=== PATIENT | female | born 1970 | race Caucasian/White ===

== ENCOUNTER → 2019-07-06 | Outpatient (CLI) | payer BC ==
--- NOTE | 2019-07-14 10:12 | MM ---
Reason for exam: screening (asymptomatic). Last mammogram was performed 6 years and 8 months ago. Physical Findings: A clinical breast exam by your physician is recommended on an annual basis and results should be correlated with mammographic findings. MG Screening Mammo w CAD Bilateral CC and MLO view(s) were taken. Prior study comparison: November 15, 2012, mammogram, performed at [place]. September 11, 2011, mammogram, performed at [place]. The breast tissue is extremely dense which could obscure a lesion on mammography. There is no discrete abnormality. ASSESSMENT: Negative, BI-RAD 1 RECOMMENDATION: Routine screening mammogram of both breasts in 1 year. Some consider ultrasound surveillance in patient with extreme dense breasts.
== END | disposition home or self-care (01) ==
LOC: RADMAMWWP 16:34
PROVIDERS: ATTEND Obstetrics & Gynecology
DX: Z12.31 Encounter for screening mammogram for malignant neoplasm of breast (principal)
CPT/HCPCS: 77067

== ENCOUNTER → 2020-11-06 | Outpatient (CLI) | payer BC ==
--- NOTE | 2020-11-12 12:09 | MM ---
Reason for exam: screening (asymptomatic). Last mammogram was performed 1 year and 4 months ago. Physical Findings: A clinical breast exam by your physician is recommended on an annual basis and results should be correlated with mammographic findings. MG Screening Mammo w CAD Bilateral CC and MLO view(s) were taken. Prior study comparison: July 06, 2019, bilateral MG screening mammo w CAD. November 15, 2012, mammogram, performed at [place]. The breast tissue is extremely dense which could obscure a lesion on mammography. Two densities right central and medial, posterior depth on CC. Density medial left breast posterior depth on CC. Density superior left breast posterior depth on MLO. ASSESSMENT: Incomplete: need additional imaging evaluation, BI-RAD 0 RECOMMENDATION: Special view mammogram of both breasts. If lesion persists on supplemental views, image directed ultrasound is recommended. [facility] will attempt to contact patient to return for supplemental views and ultrasound if indicated.
== END | disposition home or self-care (01) ==
LOC: RADMAMWWP 09:43
PROVIDERS: ATTEND Obstetrics & Gynecology
DX: Z12.31 Encounter for screening mammogram for malignant neoplasm of breast (principal)
CPT/HCPCS: 77067

== ENCOUNTER → 2020-12-05 | Outpatient (CLI) | payer BC ==
--- NOTE | 2020-12-11 10:44 | MM ---
Reason for exam: additional evaluation requested from abnormal screening. Last mammogram was performed 1 month ago. History: Took hormonal contraceptives for 12 years beginning at age 17. Physical Findings: Nurse did not find any significant physical abnormalities on exam. MG Work Up Mamm w CAD BILAT Bilateral spot compression CC and LM view(s) were taken. Spot compression MLO view(s) were taken of the left breast. Prior study comparison: November 06, 2020, bilateral MG screening mammo w CAD. July 06, 2019, bilateral MG screening mammo w CAD. The breast tissue is extremely dense which could obscure a lesion on mammography. Finding: There is a persistent intermediate concern, suspicious 5 mm equal density (isodense), indistinct irregular mass located 9 cm from the nipple in the posterior position of the right breast on CC. There is no discrete abnormality including area of concern left breast and medial right breast. New finding since November 06, 2020 and July 06, 2019. These results were verbally communicated with the patient and result sheet given to the patient on 12/05/20. ASSESSMENT: Incomplete: need additional imaging evaluation, BI-RAD 0 RECOMMENDATION: Ultrasound of the right breast.
--- NOTE | 2020-12-11 10:45 | USB ---
Reason for exam: additional evaluation requested from abnormal screening. History: Took hormonal contraceptives for 12 years beginning at age 17. US Breast Workup Limited RT Right limited breast ultrasound including focal area of concern, retroareolar and axilla demonstrates no cystic or solid lesion seen. These results were verbally communicated with the patient and result sheet given to the patient on 12/05/20. ASSESSMENT: Negative, BI-RAD 1 RECOMMENDATION: Follow-up diagnostic mammogram of the right breast in 6 months.
== END | disposition home or self-care (01) ==
LOC: RADMAMWWP 09:07
PROVIDERS: ATTEND Obstetrics & Gynecology
DX: N63.10 Unspecified lump in the right breast, unspecified quadrant (principal); Z79.3 Long term (current) use of hormonal contraceptives
CPT/HCPCS: 77066

== ENCOUNTER → 2021-06-20 | Outpatient (CLI) | payer SELFPAY ==
--- NOTE | 2021-06-20 12:09 | MM ---
Reason for exam: follow-up at short interval from prior study. Last mammogram was performed 6 months ago. History: Took hormonal contraceptives for 12 years beginning at age 17. Physical Findings: Nurse did not find any significant physical abnormalities on exam. MG Diagnostic Mammo RT w CAD Spot compression CC, spot compression MLO, and LM view(s) were taken of the right breast. Prior study comparison: December 05, 2020, bilateral MG work up mamm w CAD BILAT. November 06, 2020, bilateral MG screening mammo w CAD. The breast tissue is heterogeneously dense. This may lower the sensitivity of mammography. The small asymmetric densities posterior right CC are unchanged for 6 months. Superior, central and medial asymmetric densities are more defined but do not persist on additional view. These results were verbally communicated with the patient and result sheet given to the patient on 06/20/21. ASSESSMENT: Probably benign, BI-RAD 3 RECOMMENDATION: Follow-up diagnostic mammogram of both breasts in 5 months. Back on schedule for November 2021.
== END ==
LOC: RADMAMWWP 10:09
PROVIDERS: ATTEND Obstetrics & Gynecology
DX: N64.89 Other specified disorders of breast (principal)
CPT/HCPCS: 77065

== ENCOUNTER → 2021-12-02 | Outpatient (CLI) | payer SELFPAY ==
--- NOTE | 2021-12-02 15:22 | MM ---
Reason for Exam: Follow-up at short interval from prior study. Last mammogram was performed 1 year(s) and 1 month(s) ago. Patient History: Menarche at age 15. First Full-Term at age 21. Patient has history of breast feeding. Hormonal Contraceptives for 12 years from age 17 until age 29. Risk Values: Rianna 5 year model risk: 0.8%. NCI Lifetime model risk: 7.2%. Prior Study Comparison: 09/11/2011 Screening Mammogram, [place]. 11/15/2012 Screening Mammogram, [place]. 07/06/2019 Bilateral Screening Mammogram, [facility]. 11/06/2020 Bilateral Screening Mammogram, [facility]. 12/05/2020 Bilateral Diagnostic Mammogram, [facility]. 12/05/2020 Right Diagnostic Ultrasound, [facility]. 06/20/2021 Right Diagnostic Mammogram, [facility]. Tissue Density: The breast tissue is extremely dense which could obscure a lesion on mammography. Findings: Analyzed By CAD. Areas of asymmetric density on the right remain unchanged. There is nodularity lateral left cc view and inferior left MLO view measuring up to 1 cm that is either new or larger and better demonstrated on 3-D images. Underlying cysts are suspected. Further ultrasound evaluation recommended. Otherwise, no significant change. Overall Assessment: Incomplete: need additional imaging evaluation, BI-RAD 0 Management: Diagnostic Breast Ultrasound of the left breast. For underlying nodularity measuring up to 1 cm that is either new or increased in size. Electronically signed and approved by: Sally Staton M.D. Radiologist
--- NOTE | 2021-12-02 15:36 | USB ---
Reason for Exam: Additional evaluation requested from abnormal screening. Patient History: Menarche at age 15. First Full-Term at age 21. Patient has history of breast feeding. Hormonal Contraceptives for 12 years from age 17 until age 29. Risk Values: Rianna 5 year model risk: 0.8%. NCI Lifetime model risk: 7.2%. Prior Study Comparison: 11/06/2020 Bilateral Screening Mammogram, [facility]. 12/05/2020 Bilateral Diagnostic Mammogram, [facility]. 06/20/2021 Right Diagnostic Mammogram, [facility]. Findings: The whole breast of the left breast, the axilla of the left breast and the retroareolar of the left breast were scanned. Whole left breast ultrasound was performed including scanning of the subareolar region and axilla. Dense tissues are present throughout. Scattered benign cysts are demonstrated, largest measuring 8 mm and located at the 7:00 and 10:00 positions. There is also a biloculated cyst cluster measuring 1.0 x 0.9 cm the 3:00 position, 8 cm from the nipple. No other solid or cystic lesion seen. Overall Assessment: Probably benign, BI-RAD 3 Management: Diagnostic Mammogram of the left breast in 6 months. 1. To reassess the underlying circumscribed nodularity. 2. Patient should continue monthly self breast exams. A clinical breast exam by your physician is recommended on an annual basis. 3. This exam should not preclude additional follow-up of suspicious palpable abnormalities. Electronically signed and approved by: Sally Staton M.D. Radiologist
== END | disposition home or self-care (01) ==
LOC: RADMAMWWP 14:42
PROVIDERS: ATTEND Obstetrics & Gynecology
DX: R92.8 Other abnormal and inconclusive findings on diagnostic imaging of breast (principal)
CPT/HCPCS: 77062; 77066

== ENCOUNTER → 2023-01-16 | Outpatient (CLI) | payer SELFPAY ==
--- NOTE | 2023-01-16 11:07 | MM ---
Reason for Exam: Follow-up at short interval from prior study. Last mammogram was performed 1 year(s) and 1 month(s) ago. Patient History: Menarche at age 15. First Full-Term at age 21. Patient has history of breast feeding. Hormonal Contraceptives for 12 years from age 17 until age 29. Risk Values: Rianna 5 year model risk: 0.9%. NCI Lifetime model risk: 7.1%. Prior Study Comparison: 12/05/2020 Bilateral Diagnostic Mammogram, [facility]. 06/20/2021 Right Diagnostic Mammogram, [facility]. 12/02/2021 Bilateral MG 3D diag mammo w/cad ERASMO, [facility]. Tissue Density: Left: The breast tissue is extremely dense which could obscure a lesion on mammography. Findings: Analyzed By CAD. No evidence for suspicious mass or distortion. No suspicious microcalcifications. Overall Assessment: Benign, BI-RAD 2 Management: Screening Mammogram of both breasts in 1 year. . Results were given to the patient verbally at the time of exam. Patient should continue monthly self-breast exams. A clinical breast exam by your physician is recommended on an annual basis. This exam should not preclude additional follow-up of suspicious palpable abnormalities. Note on Rianna scores and lifetime risk: 1. A Rianna score greater than 3% is considered moderate risk. If this is the case, consider specialist referral to assess eligibility for a risk reducing agent. 2. If overall lifetime risk for the development of breast cancer is 20% or higher, the patient may qualify for future screening with alternating mammogram and breast MRI. Electronically signed and approved by: Ced Leong M.D. Radiologis
== END | disposition home or self-care (01) ==
LOC: RADMAMWWP 10:37
PROVIDERS: ATTEND Obstetrics & Gynecology
DX: R92.8 Other abnormal and inconclusive findings on diagnostic imaging of breast (principal)
CPT/HCPCS: 77061; 77065